=== PATIENT | male | born 1965 | race Caucasian/White ===

== ENCOUNTER 2020-11-28 13:55 | Observation (INO) ==
[~2020-11-28 13:55] MED LIST: cefTRIAXone 1,000 MG in 0.9 % Sodium Chloride Mini Bag 100 ML IVPB SCH
[2020-11-28] MEDS ORDERED: Isovue-370 500 ML BOTTLE IVP ONE (16:19)
[2020-11-28 17:28] LABS: Basophils % 0.1 %; Eosinophils % 0.3 %; Hematocrit 41.1 % (37.5-50.1); Hemoglobin 12.2 g/dL (12.9-16.9); Immature Granulocytes % 0.3 % (0-4); Lymphocytes # 0.9 K/mcL (0.6-4.6); Lymphocytes % 6.5 %; Mean Corpuscular HGB Conc 29.7 g/dL (31.6-35.5); Mean Corpuscular Hemoglobin 23.6 pg (28.0-33.3); Mean Corpuscular Volume 79.5 fL (83.0-100.0); Mean Platelet Volume 11.3 fL (9.4-12.4); Monocytes # 2.3 K/mcL (0.0-1.3); Monocytes % 16.4 %; Neutrophils # 10.6 K/mcL (1.6-8.9); Platelet Count 262 K/mcL (140-400); Red Blood Count 5.17 M/mcL (4.19-5.50); Red Cell Distribution Width 16.6 % (11.5-14.5); Segmented Neutrophils % 76.4 %; White Blood Count 13.9 K/mcL (4.3-11.1)
[2020-11-28 17:54] LABS: Alanine Aminotransferase 17 Units/L (7-52); Albumin 3.9 g/dL (3.5-5.7); Albumin/Globulin Ratio 1.4 (1.1-2.2); Alkaline Phosphatase 62 Units/L (34-104); Aspartate Amino Transferase 14 Units/L (13-39); BUN/Creatinine Ratio 14 (6-26); Bilirubin,Direct 0.1 mg/dL (0.0-0.2); Bilirubin,Indirect 0.6 mg/dL (0.0-1.0); Bilirubin,Total 0.7 mg/dL (0.3-1.0); Blood Urea Nitrogen 23 mg/dL (6-20); Calcium 8.7 mg/dL (8.6-10.3); Carbon Dioxide 20 mEq/L (23-29); Chloride 101 mEq/L (98-107); Globulin 2.8 g/dL (2.4-3.5); Glucose 282 mg/dL (70-105); Osmolality,Calculated 286 (280-300); Sodium 131 mEq/L (136-145); Total Protein 6.7 g/dL (6.4-8.9); Troponin I < 0.03 ng/mL (< 0.04); eGFR For African Americans 52 (> 60); eGFR For Non-African Americans 43 (> 60)
[2020-11-28] MEDS ORDERED: cefTRIAXone 1,000 MG in Water for inj. (sterile) 10 ML IVP ONE (18:05)
[2020-11-28 18:12] LABS: Adenovirus Not Detected (Not Detect); Bordetella Pertussis Not Detected (Not Detect); Chlamydophila pneumoniae Not Detected (Not Detect); Coronavirus 229E Not Detected (Not Detect); Coronavirus HKU1 Not Detected (Not Detect); Coronavirus NL63 Not Detected (Not Detect); Coronavirus OC43 Not Detected (Not Detect); Human Metapneumovirus Not Detected (Not Detect); Human Rhinovirus/Enterovirus Not Detected (Not Detect); Influenza A Subtype 2009 H1 Not Detected (Not Detect); Influenza B Not Detected (Not Detect); Mycoplasma pneumoniae Not Detected (Not Detect); Parainfluenza Virus 1 Not Detected (Not Detect); Parainfluenza Virus 2 Not Detected (Not Detect); Parainfluenza Virus 3 Not Detected (Not Detect); Parainfluenza Virus 4 Not Detected (Not Detect); Respiratory Syncytial Virus Not Detected (Not Detect); SARS-CoV-2 Not Detected (Not Detect)
[2020-11-28] MEDS ORDERED: Ondansetron 4 MG/2 ML VIAL IVP PRN (19:19)
[2020-11-28] MEDS ORDERED: Melatonin 3 MG TABLET PO PRN (19:19)
[2020-11-28] MEDS ORDERED: Naloxone 0.4 MG/ML INJ IVP PRN (19:19)
[2020-11-28] MEDS ORDERED: 0.9 % Sodium Chloride 1,000 ML IVC SCH (19:30)
[2020-11-28 20:10] LABS: Bacteria,Urine Few per hpf (None-Few); Bilirubin,Urine Negative (Negative); Blood,Urine Trace (Negative); Clarity,Urine Turbid (Clear); Color,Urine Light-Yellow (Yellow); Glucose,Urine (UA) 100 mg/dL (Normal); Ketones,Urine Negative (Negative); Leukocyte Esterase,Urine Large (Negative); Nitrite,Urine Positive (Negative); PH,Urine 6.5 pH Units (5.0-8.0); Protein,Urine 30 mg/dL (Neg-Trace); Specific Gravity,Urine 1.013 (1.010-1.025); Squamous Epithelial Cell,Urine Few per hpf (None-Few); Urobilinogen,Urine Normal (Normal); WBC,Urine 50-100 per hpf (0-3)
[2020-11-28] MEDS ORDERED: D5% in Water 1,000 ML IVC PRN (22:23)
[2020-11-28] MEDS ORDERED: Dextrose Gel 15 GM/37.5 ML TUBE PO PRN ×2 (22:23)
[2020-11-28] MEDS ORDERED: *HR* Dextrose 50 % in Water (Vial) 50 ML VIAL IVP PRN (22:23)
[2020-11-28] MEDS: Insulin LISPRO 300 UNITS/3 ML VIAL SUBQ SCH (23:23)
[2020-11-29 03:56] LABS: Hematocrit 37.5 % (37.5-50.1); Hemoglobin 11.2 g/dL (12.9-16.9); Mean Corpuscular HGB Conc 29.9 g/dL (31.6-35.5); Mean Corpuscular Hemoglobin 23.7 pg (28.0-33.3); Mean Corpuscular Volume 79.3 fL (83.0-100.0); Mean Platelet Volume 10.6 fL (9.4-12.4); Platelet Count 249 K/mcL (140-400); Red Blood Count 4.73 M/mcL (4.19-5.50); Red Cell Distribution Width 16.6 % (11.5-14.5); White Blood Count 13.1 K/mcL (4.3-11.1)
[2020-11-29 04:13] LABS: Calcium 8.6 mg/dL (8.6-10.3)
[2020-11-29] MEDS: Insulin LISPRO 300 UNITS/3 ML VIAL SUBQ SCH ×3 (08:53→16:01)
[2020-11-29] MEDS: Acetaminophen 325 MG TABLET PO PRN ×2 (08:54→18:11)
[2020-11-29] MEDS ORDERED: cefTRIAXone 1,000 MG in 0.9 % Sodium Chloride Mini Bag 100 ML IVPB SCH (09:00)
[2020-11-29] MEDS: Ampicillin/Sulbactam 1,500 MG in 0.9 % Sodium Chloride Mini Bag 100 ML IVPB SCH ×3 (10:49→21:43)
[2020-11-29] MEDS: atenoloL 50 MG TABLET PO SCH (12:40)
[2020-11-29] MEDS: hydrALAZINE 25 MG TABLET PO SCH ×2 (15:54→21:44)
[2020-11-29] MEDS: Pregabalin 75 MG CAPSULE PO SCH (21:44)
[2020-11-30 02:15] LABS: Basophils % 0.4 %; Eosinophils # 0.1 K/mcL (0.0-0.6); Eosinophils % 1.8 %; Hematocrit 45.3 % (37.5-50.1); Immature Granulocytes % 0.4 % (0-4); Lymphocytes # 1.2 K/mcL (0.6-4.6); Lymphocytes % 14.6 %; Mean Corpuscular HGB Conc 29.4 g/dL (31.6-35.5); Mean Corpuscular Hemoglobin 23.3 pg (28.0-33.3); Mean Corpuscular Volume 79.5 fL (83.0-100.0); Mean Platelet Volume 10.7 fL (9.4-12.4); Monocytes # 1.1 K/mcL (0.0-1.3); Neutrophils # 5.4 K/mcL (1.6-8.9); Platelet Count 282 K/mcL (140-400); Red Cell Distribution Width 17.6 % (11.5-14.5); Segmented Neutrophils % 68.8 %; White Blood Count 7.9 K/mcL (4.3-11.1)
[2020-11-30 02:17] LABS: Hemoglobin 13.3 g/dL (12.9-16.9)
[2020-11-30 02:34] LABS: Calcium 9.8 mg/dL (8.6-10.3); Magnesium 1.8 mg/dL (1.6-2.6); Potassium 3.9 mEq/L (3.5-5.1)
[2020-11-30] MEDS: Ampicillin/Sulbactam 1,500 MG in 0.9 % Sodium Chloride Mini Bag 100 ML IVPB SCH ×3 (02:38→14:33)
[2020-11-30] MEDS: Acetaminophen 325 MG TABLET PO PRN (03:16)
[2020-11-30] MEDS ORDERED: *HR* Enoxaparin 30 MG/0.3 ML SYRINGE SQ SCH (07:00)
[2020-11-30] MEDS: Insulin LISPRO 300 UNITS/3 ML VIAL SUBQ SCH ×3 (07:41→16:24)
[2020-11-30] MEDS: Pregabalin 75 MG CAPSULE PO SCH (08:13)
[2020-11-30] MEDS: hydrALAZINE 25 MG TABLET PO SCH ×2 (08:13→14:33)
[2020-11-30] MEDS: atenoloL 50 MG TABLET PO SCH (08:14)
[2020-11-30 08:51] LABS: Estimated Average Glucose 194 mg/dl; Hemoglobin A1C 8.4 %
[2020-11-30] MEDS ORDERED: predniSONE 5 MG TABLET PO SCH (09:00)
[2020-11-30] MEDS ORDERED: amLODIPine 5 MG TABLET PO SCH (09:00)
[2020-11-30 10:58] VITALS: BP 132/86
[2020-12-01] MEDS ORDERED: *HR* Enoxaparin 40 MG/0.4 ML SYRINGE SQ SCH (06:00)
== END 2020-11-30 17:30 | disposition home or self-care (01) ==
LOC: 2ANU 13:55 → EMEROOARM 13:55 → SUATTDRO 20:08 → 2ANU 21:08
PROVIDERS: ADMIT Internal Medicine; ATTEND Pharmacist